=== PATIENT | male | born 1950 | race Two or more races ===

== ENCOUNTER 2018-01-20 11:28 | Outpatient (CLI) | payer OTHER | END 2018-01-20 12:05 | disposition home or self-care (01) | LOC: RAD 11:28 | DX: M54.5 Low back pain (principal); M25.561 Pain in right knee; M25.562 Pain in left knee ==

== ENCOUNTER 2018-02-17 18:45 | Emergency (ER) | payer OTHER ==
[~2018-02-17] VITALS: Ht 165.1 cm; Wt 79.4 kg
== END 2018-02-18 00:27 | disposition home or self-care (01) ==
LOC: ER 18:45
DX: S60.512A Abrasion of left hand, initial encounter (principal); S80.212A Abrasion, left knee, initial encounter; S00.31XA Abrasion of nose, initial encounter; S00.81XA Abrasion of other part of head, initial encounter; W18.39XA Other fall on same level, initial encounter; Y93.01 Activity, walking, marching and hiking; Y92.79 Other farm location as the place of occurrence of the external cause; Y99.8 Other external cause status
CPT/HCPCS: G0168; 70450

== ENCOUNTER 2018-12-09 11:39 | Emergency (ER) | payer OTHER ==
[~2018-12-09] VITALS: Ht 165.1 cm; Wt 80.3 kg
[2018-12-09] MEDS ORDERED: JANUMET 50-1,01 EACH (12:00)
[2018-12-09] MEDS ORDERED: AVAPRO300 MG (12:00)
[2018-12-09] MEDS ORDERED: SYNTHROID50 MCG (12:01)
== END 2018-12-09 14:52 | disposition home or self-care (01) ==
LOC: ER 11:39
DX: S33.5XXA Sprain of ligaments of lumbar spine, initial encounter (principal); M54.5 Low back pain; X50.0XXA Overexertion from strenuous movement or load, initial encounter; Y93.F2 Activity, caregiving, lifting; Y92.89 Other specified places as the place of occurrence of the external cause; Y99.8 Other external cause status

== ENCOUNTER 2019-08-01 08:38 | Outpatient (CLI) | payer OTHER ==
[~2019-08-01 08:38] MED LIST: AVAPRO300 MG; JANUMET 50-1,01 EACH; SYNTHROID50 MCG
== END 2019-08-01 08:48 | disposition home or self-care (01) ==
LOC: SONOGRAMA 08:38
DX: I11.9 Hypertensive heart disease without heart failure (principal); E11.69 Type 2 diabetes mellitus with other specified complication; R10.84 Generalized abdominal pain; R10.31 Right lower quadrant pain

== ENCOUNTER 2020-06-01 09:29 | Outpatient (CLI) | payer OTHER | END 2020-06-01 09:50 | disposition home or self-care (01) | LOC: TOM 09:29 | PROVIDERS: ATTEND Specialist | DX: L92.8 Other granulomatous disorders of the skin and subcutaneous tissue (principal); R06.2 Wheezing ==

== ENCOUNTER 2021-07-12 07:32 | Outpatient (CLI) | payer OTHER | END 2021-07-12 07:35 | disposition home or self-care (01) | LOC: TOM 07:32 | PROVIDERS: ATTEND Internal Medicine Cardiovascular Disease | DX: R13.19 Other dysphagia (principal); R06.09 Other forms of dyspnea; K44.9 Diaphragmatic hernia without obstruction or gangrene ==

== ENCOUNTER 2021-09-13 13:18 | Outpatient (CLI) | payer OTHER | END 2021-09-13 13:22 | disposition home or self-care (01) | LOC: TOM 13:18 | DX: R10.84 Generalized abdominal pain (principal); N40.0 Benign prostatic hyperplasia without lower urinary tract symptoms; K57.90 Diverticulosis of intestine, part unspecified, without perforation or abscess without bleeding ==

== ENCOUNTER 2021-09-29 10:39 | Outpatient (CLI) | payer OTHER | END 2021-09-29 10:54 | disposition home or self-care (01) | LOC: MRI 10:39 | PROVIDERS: ATTEND Orthopaedic Surgery | DX: M54.31 Sciatica, right side (principal) | CPT/HCPCS: 72148 ==